=== PATIENT | male | born 1975 | race Two or more races ===

== ENCOUNTER 2018-08-27 13:44 | Emergency (ER) | payer MEDICAID ==
[~2018-08-27] VITALS: Ht 177.8 cm; Wt 72.0 kg
--- NOTE | 2018-08-27 14:06 | NUR ---
pt amb with steady gait from lobby to overflow, pt is calm and cooperative, waiting to be evaluated
--- NOTE | 2018-08-27 14:20 | NUR ---
family friend, Mary Rod,
--- NOTE | 2018-08-27 14:22 | NUR ---
pt is 43 yo male BIB family friend for mental health evaluation, pt is developmentally delayed per friend and has been [facility] program, homeless x3 months, using meth for 7-8 months, pt is calm and cooperative, resp even and unlabored, skin p/w/d, would like help to find place to live, stay off meth, pt denies suicidal plan "just want to give up", attempted suicide once in the past by slitting wrists
[2018-08-27 15:17] LABS: BASOPHILS # (AUTO) 0.1 X10'3 (0-0.2); BASOPHILS % (AUTO) 0.9 % (0-1); EOSINOPHILS # (AUTO) 0.3 X10'3 (0-0.9); EOSINOPHILS % (AUTO) 2.8 % (0-6); HEMATOCRIT 40.2 % (42.0-52.0); LYMPHOCYTES # (AUTO) 2.6 X10'3 (1.1-4.8); LYMPHOCYTES % (AUTO) 27.7 % (21-51); MEAN CORPUSCULAR HEMOGLOBIN 30.4 PG (27.0-31.0); MEAN CORPUSCULAR HGB CONC 34.7 g/dL (33.0-36.5); MEAN CORPUSCULAR VOLUME 87.5 FL (78-98); MEAN PLATELET VOLUME 9.5 FL (7.4-10.4); MONOCYTES # (AUTO) 0.7 X10'3 (0-0.9); MONOCYTES % (AUTO) 7.2 % (2-12); NEUTROPHILS # (AUTO) 5.7 X10'3 (1.8-7.7); NEUTROPHILS % (AUTO) 61.4 % (42-75); PLATELET COUNT 346 X10'3 (140-440); RED CELL DISTRIBUTION WIDTH 13.4 % (11.5-14.5); WHITE BLOOD COUNT 9.3 X10'3 (4.5-11.0)
[2018-08-27 15:27] LABS: ALANINE AMINOTRANSFERASE 18 U/L (12-78); ALBUMIN/GLOBULIN RATIO 0.8 (1.1-1.5); ALKALINE PHOSPHATASE 141 IU/L (46-116); ANION GAP 11 (8-16); ASPARTATE AMINO TRANSFERASE 12 U/L (10-37); BILIRUBIN,TOTAL 0.2 MG/DL (0.1-1.0); BLOOD UREA NITROGEN 13 MG/DL (7-18); BUN/CREATININE RATIO 12.9 (5.4-32.0); CALCIUM 8.3 MG/DL (8.5-10.1); CHLORIDE 98 MMOL/L (99-107); CREATININE 1.01 MG/DL (0.60-1.10); POTASSIUM 3.7 MMOL/L (3.5-5.1); SODIUM 135 MMOL/L (135-145); TOTAL CARBON DIOXIDE 26.5 MMOL/L (24-32); eGFR 81 ML/MIN
[2018-08-27 15:28] LABS: GLUCOSE 346 MG/DL (70-104)
--- NOTE | 2018-08-27 15:38 | NUR ---
Nursing Note: Pt laying in bed, respirations even and unlabored, no S&S of distress, will continue to monitor.
[2018-08-27 15:39] LABS: ETHANOL < 0.010 GM/DL (0.0-0.010)
--- NOTE | 2018-08-27 15:46 | NUR ---
Nursing Note: Pt denies any home medications. Unable to get urine for urinalysis at this time. Encouraged pt to drink water. Will continue to monitor.
[2018-08-27] MEDS ORDERED: glucagon, human recombinant 1mg kit SUBCUT PRN (15:50)
[2018-08-27] MEDS ORDERED: insulin Lispro (HumaLOG) vial - multi-dose SQ SCH (15:50)
[2018-08-27] MEDS ORDERED: metFORMIN 500mg tablet PO ONE (15:50)
[2018-08-27] MEDS ORDERED: MESSAGE TO PHARMACY PO ONE (15:50)
[2018-08-27] MEDS ORDERED: dextrose 50%-water 50ml dispensing syringe IV PRN ×2 (15:50)
[2018-08-27] MEDS ORDERED: insulin regular, human 10 units/0.1 ml syringe SQ ONE (15:50)
[2018-08-27] MEDS ORDERED: dextrose ORAL solution 15 GM/59 ML bottle PO PRN ×2 (15:50)
[2018-08-27 16:39] LABS: CLARITY,URINE CLEAR (Clear); COLOR,URINE STRAW (Yellow); GLUCOSE, URINE >=1000 mg/dl (Neg); KETONES,URINE NEGATIVE (Neg); LEUKOCYTE ESTERASE ,URINE NEGATIVE (Neg); NITRITES, URINE NEGATIVE (Neg); OCCULT BLOOD,URINE NEGATIVE (Neg); PH,URINE 5.5 (4.8-8.0); PROTEIN,URINE NEGATIVE (Neg); UROBILINOGEN,URINE 0.2 E.U/dL (0.2-1.0)
[2018-08-27 16:41] LABS: UA COLLECTION TYPE NON-SPECIFIED
[2018-08-27 16:46] LABS: BACTERIA,URINE NONE SEEN /HPF (Neg); MUCUS STRANDS NONE SEEN /LPF (Neg); RBC,URINE NONE SEEN /HPF (0-2); SQUAMOUS EPITHELIAL CELL,UR NONE SEEN /LPF (FEW); WBC,URINE NONE SEEN /HPF (0-4)
[2018-08-27 16:52] LABS: URINE AMPHETAMINE SCREEN POSITIVE (Neg); URINE BARBITUATE SCREEN NEGATIVE (Neg); URINE BENZODIAZEPINES SCREEN NEGATIVE (Neg); URINE CANNABINOID SCREEN NEGATIVE (Neg); URINE COCAINE SCREEN NEGATIVE (Neg); URINE METHADONE SCREEN NEGATIVE (Neg); URINE OPIATE SCREEN NEGATIVE (Neg); URINE PHENCYCLIDINE SCREEN NEGATIVE (Neg)
[2018-08-27] MEDS ORDERED: metFORMIN 500mg tablet PO SCH ×2 (17:00→18:00)
--- NOTE | 2018-08-27 17:09 | NUR ---
Nursing Note: Pt laying in bed on R side, respirations even and unlabored, no S&S of distress, will continue to monitor.
--- NOTE | 2018-08-27 17:28 | NUR ---
Nursing Note: Called to initiate telepsych consult. Will continue to monitor.
[2018-08-27] MEDS ORDERED: insulin glargine (Lantus) pen - multi-dose SQ SCH (21:00)
--- NOTE | 2018-08-27 22:11 | NUR ---
pt currently receiving telepsych consult
[2018-08-28 05:30] VITALS: BP 134/69
== END 2018-08-28 05:58 | disposition home or self-care (01) ==
LOC: ER 13:45
DX: E11.65 Type 2 diabetes mellitus with hyperglycemia (principal); R45.851 Suicidal ideations; F32.9 Major depressive disorder, single episode, unspecified; F15.90 Other stimulant use, unspecified, uncomplicated; Z60.2 Problems related to living alone; Z59.0 Homelessness
CPT/HCPCS: 36415; 80053; 80305; 80320; 81001; 82948; 83036; 84443; 85025; 99284; J1815

== ENCOUNTER 2020-04-02 09:00 | Emergency (ER) | payer SELFPAY ==
[~2020-04-02] VITALS: Ht 177.8 cm; Wt 72.7 kg
[2020-04-02 09:16] VITALS: BP 106/95
[2020-04-02] MEDS ORDERED: HYDROcodone/acetaminophen 10/325mg tab PO ONE (10:05)
[2020-04-02] MEDS ORDERED: amox tr/potassium clavulanate 875/125mg TAB PO ONE (10:05)
[2020-04-02] MEDS ORDERED: IBUP-1986 PO (10:06)
[2020-04-02] MEDS ORDERED: AMOX-422 PO (10:06)
[2020-04-02] MEDS ORDERED: HYDR-4353 PO (10:06)
== END 2020-04-02 10:30 | disposition home or self-care (01) ==
LOC: ER 09:00
DX: K04.7 Periapical abscess without sinus (principal); E11.9 Type 2 diabetes mellitus without complications; F15.90 Other stimulant use, unspecified, uncomplicated; Z60.2 Problems related to living alone; Z59.0 Homelessness; Z79.899 Other long term (current) drug therapy
CPT/HCPCS: 99283

== ENCOUNTER 2021-01-19 13:49 | Emergency (ER) | payer MEDICAID ==
[~2021-01-19] VITALS: Ht 177.8 cm; Wt 78.0 kg
[~2021-01-19 13:49] MED LIST: IBUP-1986 PO
[2021-01-19 14:03] VITALS: BP 136/82
[2021-01-19] MEDS ORDERED: ketorolac tromethamine 15mg/ml inj. IM ONE (14:40)
[2021-01-19] MEDS ORDERED: SULF1TAB49 PO (14:46)
== END 2021-01-19 14:52 | disposition home or self-care (01) ==
LOC: ER 13:49
DX: L02.01 Cutaneous abscess of face (principal); R51.9 Headache, unspecified; E11.9 Type 2 diabetes mellitus without complications; F17.200 Nicotine dependence, unspecified, uncomplicated; F15.90 Other stimulant use, unspecified, uncomplicated; Z60.2 Problems related to living alone; Z59.0 Homelessness; Z79.2 Long term (current) use of antibiotics; Z79.899 Other long term (current) drug therapy
CPT/HCPCS: 96372; 99283; J1885

== ENCOUNTER 2022-04-26 15:40 | Emergency (ER) | payer MEDICAID ==
[~2022-04-26] VITALS: Ht 160 cm; Wt 81.8 kg
[2022-04-26] MEDS ORDERED: HYDROcodone/acetaminophen 10/325mg tab PO ONE (17:15)
[2022-04-26] MEDS ORDERED: amox tr/potassium clavulanate 875/125mg TAB PO ONE (17:15)
[2022-04-26] MEDS ORDERED: HYDR-3972 PO (17:23)
[2022-04-26] MEDS ORDERED: AMOX-117 PO (17:23)
[2022-04-26 17:56] VITALS: BP 122/78
== END 2022-04-26 18:02 | disposition home or self-care (01) ==
LOC: ER 15:41
DX: K04.7 Periapical abscess without sinus (principal); K02.9 Dental caries, unspecified; E11.9 Type 2 diabetes mellitus without complications; F15.90 Other stimulant use, unspecified, uncomplicated; Z59.00 Homelessness unspecified
CPT/HCPCS: 99283